=== PATIENT | female | born 1955 | race Caucasian/White ===

== ENCOUNTER → 2025-01-21 17:54 | Outpatient (CLI) | payer MEDICARE, SELFPAY | PROVIDERS: Family Provider Family Medicine; PCP Family Medicine; Visit Provider Physician Assistant | DX: R30.0 Dysuria (principal) | CPT/HCPCS: 87086 ==

== ENCOUNTER 2025-01-21 18:22 | Emergency (ER) | payer MEDICARE, SELFPAY ==
[2025-01-21 18:50] VITALS: BP 165/90; PULSE 76; RESP 17; TEMP 37.1; O2SAT 93
--- NOTE | 2025-01-21 19:10 | DI.CT.S_ITS ---
PROCEDURE: CT ABDOMEN PELVIS W CON INDICATIONS: LLQ pain TECHNIQUE: After the administration of intravenous contrast, axial sections acquired from the lung bases to the pubic symphysis. Coronal and sagittal reformats were performed. For radiation dose reduction, the following was used: automated exposure control, adjustment of mA and/or kV according to patient size. COMPARISON: None. FINDINGS: Image quality: Diagnostic. Lower Chest: Trace pericardial effusion. Partially visualized right middle lobe 6 mm pulmonary nodule (2/1). ABDOMEN: Liver: Cysts and additional subcentimeter hypodensities too small to fully characterize. Gallbladder: Gallstones. No wall thickening. Biliary ducts: No biliary dilation. Pancreas: No ductal dilation. Spleen: Size is within normal limits. Adrenal Glands: No adrenal nodules. Kidneys and Ureters: No hydronephrosis. No solid mass. No complex renal cystic lesion which requires follow up. Stomach and Bowel: Small hiatal hernia. Colonic diverticulosis without evidence of acute diverticulitis. Normal appendix, mildly distended. Peritoneum: No abnormal intraperitoneal fluid. No free air. Ventral Wall: No significant ventral hernia. Abdominal Nodes: No retroperitoneal or mesenteric adenopathy by size criteria. Vessels: Aorta and inferior vena cava are normal in size. PELVIS: Pelvic Organs: Hysterectomy. Bladder: No bladder wall thickening, accounting for underdistention. Pelvic Nodes: No enlarged lymph nodes. Miscellaneous: No inguinal hernias are seen. Bones: No aggressive osseous abnormality. IMPRESSION: No acute process in the abdomen or pelvis. Partially visualized right middle lobe 6 mm pulmonary nodule. Recommend further evaluation with LDCT on a nonemergent basis. Dictated by: Kait Irwin M.D. on 01/21/2025 at 20:26 Approved by: Kait Irwin M.D. on 01/21/2025 at 20:33
--- NOTE | 2025-01-21 19:13 | ED_ITS ---
HPI - Abdominal Pain General Chief Complaint: Abdominal Pain Stated Complaint: Lower abd px/blood in urine Time Seen by Provider: 01/21/25 19:10 Source: patient and family Mode of arrival: Wheelchair History of Present Illness HPI narrative: 69-year-old female history of hypertension, dyslipidemia, prior traumatic brain injury with craniotomy and focal seizures currently on zonisamide patient does take an aspirin 81 mg daily. Patient presents with a complaint of lower abdominal discomfort. States no fevers, some mild chills. She has had some nausea but no vomiting. She has been a little bit constipated has not had a bowel movement in the last day and was taking stool softeners but did not want to take any MiraLax as she often develops diarrhea with this. She has noticed a little bit dysuria urgency and frequency. No vaginal bleeding or discharge. No back or flank pain. She describes the pain has been more in the left-sided region. Patient notes she has had a prior hysterectomy denies any other intra- abdominal surgeries. She has had prior craniotomy. Home medications include zonisamide, venlafaxine, rosuvastatin, aspirin 81 mg daily, amlodipine, losartan and omeprazole. No reported drug allergies No tobacco, alcohol or recreational drugs. She is accompanied by her . Related Data Home Medications ?Medication ?Instructions ?Recorded ?Confirmed aspirin 81 mg tablet,delayed 81 mg PO DAILY 10/09/24 1 03/24/24 release (Enteric Coated Aspirin) docusate sodium 50 mg capsule 50 mg PO DAILY 10/09/24 01/21/25 omeprazole 20 mg capsule,delayed 20 mg PO DAILY 01/21/25 release rosuvastatin 20 mg tablet 20 mg PO DAILY 10/09/2403/17 zonisamide 100 mg capsule 100 mg PO ONCE PM 10/09/24 1 03/24/24 Previous Rx's ?Medication ?Instructions ?Recorded hydrocortisone acetate 25 mg 25 mg MS DAILY PRN hemorr hoids #12 11/08/24 rectal suppository (Anusol-HC) ea venlafaxine 75 mg capsule,extended 75 mg PO DAILY #90 caps 11/08/24 release 24 hr amlodipine 5 mg tablet 5 mg PO DAILY #90 tabs 11/21 losartan 50 mg tablet 50 mg PO DAILY #90 tabs 03/17 cephalexin 500 mg capsule 500 mg PO Q8H 5 days #15 cap s 01/21/25 Allergies Allergy/AdvReac Type Severity Reaction Status Date / Time No Known Drug Allergies Allergy Verified 01/21/25 17:33 Review of Systems Review of Systems ROS Unobtainable: All systems reviewed & are unremarkable except as noted in HPI and below Patient History Social History Smoking Status: Smoker, status unknown Smoking Status: Smoker, status unknown Exam Narrative Exam Narrative: GENERAL: Alert and oriented x three, mild distress. HEENT: Head normocephalic, atraumatic, EOMI, pupils reactive, face symmetric, moist mucous membranes NECK: Supple, full range of motion CARDIOVASCULAR: Regular rate and rhythm without murmurs, rubs or gallops. RESPIRATORY: Breath sounds equal bilaterally, no wheezes rales or rhonchi. ABDOMEN: Soft, mild left lower quadrant tenderness. Normoactive bowel sounds all 4 quadrants. No guarding or rebound, rigidity, no mass : No CVA tenderness EXTREMITIES: Normal range of motion, no clubbing or edema. Neurovascularly intact NEUROLOGICAL: Cranial nerves II through XII grossly intact. Moving all extremities SKIN: Warm, dry, no petechiae, no rashes or lesions. Initial Vital Signs Initial Vital Signs: Vital Signs Temperature 98.7 F 01/21/25 18:50 Pulse Rate 76 01/21/25 18:50 Respiratory Rate 17 01/21/25 18:50 Blood Pressure 165/90 H 01/21/25 18:50 Pulse Oximetry 93 01/21/25 18:50 Oxygen Delivery Method Room Air 01/21/25 18:50 Course Orders Ordered: ED Orders 01/21/25 19:03 Comprehensive Metabolic Panel Stat Lipase Stat 01/21/25 19:10 CT abdomen pelvis w con Stat 01/21/25 19:29 Complete Blood Count AUTO DIFF Stat 01/21/25 22:40 Urine Microscopic Stat Discontinued Medications Cephalexin HCl (Cephalexin 250 Mg Capsule) 500 mg PO NOW ONE Stop: 01/21/25 22:46 Last Admin: 01/21/25 22:54 Dose: 500 mg Ondansetron HCl (Ondansetron 4 Mg/2 Ml Inj) 4 mg IV NOW PRN PRN Reason: Nausea And Vomiting Ondansetron HCl (Ondansetron 4 Mg Odt) 4 mg PO NOW PRN PRN Reason: Nausea And Vomiting Vital Signs Vital signs: Vital Signs - 8 hr 01/21/25 18:50 01/21/25 22:50 Temperature 98.7 F Pulse Rate 76 73 Respiratory Rate 17 16 Blood Pressure 165/90 H 159/89 H Pulse Oximetry 93 95 Oxygen Delivery Method Room Air Room Air MDM - Abdominal Pain Lab Data 01/21/25 19:29 01/21/25 19:03 Labs: Lab Results 01/21/25 01/21/25 Range/Units 19:03 19:29 WBC 7.1 (4.5-11.0) X10^3/uL RBC 4.85 (4.0-5.2) X10^6/uL Hgb 14.0 (12.0-16.0) g/dL Hct 42.2 (36-46) % MCV 87.1 (80-100) fL MCH 28.9 (26-34) PG MCHC 33.2 (30-36) % RDW 14.6 (11.6-14.8) % Plt Count 294 (150-400) X10^3/uL Neut % (Auto) 62.1 (50-75) % Lymph % (Auto) 27.8 (25-40) % [place] % (Auto) 7.2 (3-14) % Eos % (Auto) 2.2 (2-4) % Baso % (Auto) 0.7 (0-2) % Neut # (Auto) 4400 (7291-6082) /uL Lymph # (Auto) 2000 (2282-2521) /uL [place] # (Auto) 500 (0-900) /uL Eos # (Auto) 200 (0-450) /uL Baso # (Auto) 100 (0-100) /uL Sodium 141 (137-145) mmol/L Potassium 4.1 (3.4-5.1) mmol/L Chloride 107 (98-107) mmol/L Carbon Dioxide 26 (22-32) mmol/L BUN 16 (7-17) mg/dL Creatinine 0.98 (0.52-1.04) mg/dL Estimated GFR > 60 (>60) mL/min BUN/Creatinine Ratio 16.3 (6-22) Glucose 104 H (70-99) mg/dL Calcium 10.3 H (8.4-10.2) mg/dL Total Bilirubin 0.5 (0.2-1.3) mg/dL AST 32 (14-36) IU/L ALT 19 (<35) IU/L Alkaline Phosphatase 94 (38-126) U/L Total Protein 7.7 (6.3-8.2) g/dL Albumin 4.6 (3.5-5.0) g/dL Globulin 3.1 (1.7-4.1) g/dL Albumin/Globulin Ratio 1.5 (1.0-2.8) Lipase 43 (23-300) U/L MDM Narrative Medical decision making narrative: Labs show white count is 7, hemoglobin of 14 platelets of 294, chemistries are appropriate, glucose is 104 calcium is 10.3 LFTs are otherwise negative lipase is normal. Patient has a urinalysis showed protein 1+ blood, negative for leuks, no glucose. CT abdomen pelvis shows no acute process in the abdomen or pelvis there is a partially visualized right middle lobe 6 mm pulmonary nodule recommend further evaluation with low-dose CT on nonemergent basis. Patient's workup was reviewed with her. They are unaware of any history of pulmonary nodules we will have him follow up for rechecked for this. We noticed a little bit of blood in her urine she has had urinary symptoms, labs and CT abdomen pelvis do not show any other acute intra-abdominal process. As she has a history of focal seizures in his high-risk for having breakthrough seizures we will go ahead and treat for potential UTI but discussed need for follow up if persistent symptoms. Discussed return precautions all questions answered. Discharge Plan Departure Patient Disposition: Home Clinical Impression: Pulmonary nodule, Abdominal pain Activity Restrictions/Additional Instructions: Your workup today incidentally shows a partially visualized 6 mm right middle lobe pulmonary nodule recommended you have a follow up of CT of your chest in the future. Share this information with your physician and they can help set up follow up with a CT of your chest. He would recommend you continue your stool softeners, and if you have not had a bowel movement in the next day I would add MiraLax to your bowel regimen. Your urine showed a small amount of blood, this can sometimes be a sign of a bladder infection so I would cover you with a short term prescription for antibiotics. Prescription was sent to [facility] in [place] Please return if you have fevers, new or worsening abdominal back or flank pain, persistent vomiting, any changes to mentation, black or bloody stools, difficulty with urination or other new or concerning changes. Prescriptions: New cephalexin 500 mg capsule 500 mg PO Q8H 5 Days Qty: 15 0RF No Action amlodipine 5 mg tablet 5 mg PO DAILY Qty: 90 2RF losartan 50 mg tablet 50 mg PO DAILY Qty: 90 2RF zonisamide 100 mg capsule 100 mg PO ONCE PM omeprazole 20 mg capsule,delayed release(DR/EC) 20 mg PO DAILY rosuvastatin 20 mg tablet 20 mg PO DAILY docusate sodium 50 mg capsule 50 mg PO DAILY aspirin [Enteric Coated Aspirin] 81 mg tablet,delayed release (DR/EC) 81 mg PO DAILY hydrocortisone acetate [Anusol-HC] 25 mg suppository 25 mg MS DAILY PRN (Reason: hemorrhoids) Qty: 12 0RF venlafaxine 75 mg capsule,extended release 24hr 75 mg PO DAILY Qty: 90 3RF Referrals: Reena Rodriguez DO [Primary Care Provider, Family Practice] Stand Alone Forms: Patient Portal/API
[2025-01-21 19:28] LABS: Alanine Aminotransferase 19 IU/L (<35); Albumin 4.6 g/dL (3.5-5.0); Albumin Globulin Ratio 1.5 (1.0-2.8); Alkaline Phosphatase 94 U/L (38-126); Blood Urea Nitrogen 16 mg/dL (7-17); Calcium 10.3 mg/dL (8.4-10.2); Carbon Dioxide 26 mmol/L (22-32); Chloride 107 mmol/L (98-107); Estimated Glomerular Filt Rate > 60 mL/min (>60); Globulin 3.1 g/dL (1.7-4.1); Glucose 104 mg/dL (70-99); Lipase 43 U/L (23-300); Potassium 4.1 mmol/L (3.4-5.1); Sodium 141 mmol/L (137-145); Total Protein 7.7 g/dL (6.3-8.2)
[2025-01-21 19:47] LABS: HEMOLYSIS 60 (0-50)
[2025-01-21 19:52] LABS: Add Manual Diff / Slide Review NO; Hematocrit 42.2 % (36-46); Hemoglobin 14.0 g/dL (12.0-16.0); Lymphocytes Absolute Auto 2000 /uL (1100-4500); Mean Corpuscular HGB Conc 33.2 % (30-36); Mean Corpuscular Hemoglobin 28.9 PG (26-34); Mean Corpuscular Volume 87.1 fL (80-100); Platelet Count 294 X10^3/uL (150-400)
[2025-01-21 22:50] VITALS: BP 159/89; PULSE 73; RESP 16; O2SAT 95
== END 2025-01-21 22:56 | disposition home or self-care (01) ==
PROVIDERS: Emergency Provider Emergency Medicine; Family Provider Family Medicine; PCP Family Medicine
DX: R10.30 Lower abdominal pain, unspecified (principal); R91.1 Solitary pulmonary nodule; R31.9 Hematuria, unspecified; R11.0 Nausea
CPT/HCPCS: 36415; 74177; 80053; 83690; 85025; 87086; 99283; 99284; Q9967

== ENCOUNTER → 2025-02-10 10:37 | Outpatient (CLI) | payer MEDICARE, SELFPAY ==
--- NOTE | 2025-02-10 10:37 | DI.CT.S_ITS ---
PROCEDURE: CT CHEST WO CON INDICATIONS: pulmonary nodule TECHNIQUE: Noncontrast 2.0-2.5 mm thick sections acquired from the pulmonary apices to the posterior costophrenic angles. 7 mm thick axial MIP and 5 mm coronal and sagittal reformats were then acquired. For radiation dose reduction, the following was used: automated exposure control, adjustment of mA and/or kV according to patient size. COMPARISON: [facility], CT, CT ABDOMEN PELVIS W CON, 01/21/2025, 19:52. FINDINGS: Image quality: Diagnostic. Lower Neck: No enlarged lymph nodes. Thyroid: No thyroid nodules which require sonographic follow up, per consensus guidelines. Axillae: No enlarged lymph nodes. Chest Wall: Unremarkable. Bones: No aggressive appearing bony lesions. Lungs and Pleura: No pneumothorax or pleural effusions. 6 x 4 mm solid nodule in anterior right middle lobe series 3, image 151. Bibasilar scattered atelectasis is seen. No other suspicious pulmonary nodules are seen. Heart: Heart size is enlarged. No pericardial effusion. 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 Thoracic Vessels: The aorta and pulmonary arteries demonstrate normal size. Mediastinum and Charity: No enlarged lymph nodes. Esophagus: No wall thickening. Small to moderate sized hiatal hernia. Upper Abdomen: Possible cyst in left lobe of liver is seen and measures 2.5 x 1.6 cm in size unchanged from previous study. Cholelithiasis without CT evidence of acute cholecystitis. IMPRESSION: 1. Stable 6 x 4 mm solid nodule in anterior right middle lobe. No other suspicious pulmonary nodule is seen. CT chest follow-up in 6-12 months is recommended. 2. Bibasilar scattered scarring/atelectasis. No focal infiltrate, pleural effusion or pneumothorax. 3. Cardiomegaly, no pericardial effusion. No mediastinal or hilar lymphadenopathy. Small small. Fleischner Society criteria for SOLID lung nodule followup. Nodule size (mm)Low-risk patientHigh-risk patient<6 (single or multiple)No routine followup.Optional CT at 12 months. 6-8 (single or multiple)CT at 6-12 months, then optional CT at 18-24 mo.CT at 6-12 months, then CT at 18-24 months. >8 (single)CT at 3 months, PET-CT, or biopsy. Same as for low-risk pts. >8 (multiple)CT at 3-6 months, then optional CT at 18-24 mo.CT at 3-6 months, then CT at 18-24 months. Fleischner Society criteria for SUB-SOLID lung nodule followup. Solitary pure ground-glass nodules<6 mm (ground glass or part solid)No followup needed. 6 mm or larger (ground glass)CT at 6-12 months to confirm persistence, then CT every 2 years until 5 years.6 mm or larger (part solid)CT at 3-6 months to confirm persistence, then annual CT until 5 years if unchanged and solid component remains <6 mm. Multiple sub-solid nodules<6 mmCT at 3-6 months, then CT consider at 2 & 4 years for high risk patients. [address] at 3-6 months. Subsequent management based on most suspicious lesions. Recommendations do not apply to lung cancer screening, patients with immunosuppression, or patients with known primary cancer. Dictated by: Genaro Gonsalez M.D. on 02/10/2025 at 13:47 Approved by: Genaro Gonsalez M.D. on 02/10/2025 at 13:51
== END ==
LOC: CT 10:37
PROVIDERS: PCP Family Medicine; Referring Provider Family Medicine; Visit Provider Family Medicine
DX: R91.1 Solitary pulmonary nodule (principal); I51.7 Cardiomegaly; K44.9 Diaphragmatic hernia without obstruction or gangrene; K80.20 Calculus of gallbladder without cholecystitis without obstruction; Z95.2 Presence of prosthetic heart valve
CPT/HCPCS: 71250